=== PATIENT | female | born 1975 ===

== ENCOUNTER → 2017-10-10 14:43 | Outpatient (CLI) | payer OTHER | END | disposition home or self-care (01) | LOC: LAB 14:43 | DX: N30.00 Acute cystitis without hematuria (principal); R82.79 Other abnormal findings on microbiological examination of urine ==

== ENCOUNTER 2017-10-10 17:14 | Inpatient (IN) | payer OTHER ==
[~2017-10-10] VITALS: Ht 157.5 cm; Wt 90.7 kg
== END 2017-10-17 10:51 | disposition home or self-care (01) | DRG 660 ==
LOC: SURG 10-15 08:00 → O/R 10-15 08:40 → SURH 10-15 08:40 → CIR.AMB 10-15 17:12 → SURG 10-15 17:12 → EDSTATUS 10-15 17:12 → SURH 10-15 21:42
PROVIDERS: Urology
PROC: BT1FZZZ Fluoroscopy of Left Kidney, Ureter and Bladder (ICD-10-PCS; 2017-10-15)
PROC: 0TC18ZZ Extirpation of Matter from Left Kidney, Via Natural or Artificial Opening Endoscopic (ICD-10-PCS; principal; 2017-10-15 08:00)
DX: N20.0 Calculus of kidney (principal); N39.0 Urinary tract infection, site not specified; D64.89 Other specified anemias

== ENCOUNTER 2017-10-22 08:35 | Outpatient (CLI) | payer OTHER | END 2017-10-22 08:57 | disposition home or self-care (01) | LOC: LAB 08:35 | DX: N20.0 Calculus of kidney (principal) ==

== ENCOUNTER 2017-10-28 10:31 | Outpatient (CLI) | payer OTHER | END 2017-10-28 10:41 | disposition home or self-care (01) | LOC: LAB 10:31 | DX: N20.0 Calculus of kidney (principal) ==

== ENCOUNTER → 2017-12-12 | Outpatient (CLI) | payer OTHER | END | disposition home or self-care (01) | LOC: RAD 10:22 | DX: N20.0 Calculus of kidney (principal); N30.00 Acute cystitis without hematuria ==

== ENCOUNTER 2018-01-30 11:50 | Outpatient (CLI) | payer OTHER | END 2018-01-30 11:56 | disposition home or self-care (01) | LOC: LAB 11:50 | DX: N30.00 Acute cystitis without hematuria (principal) ==

== ENCOUNTER → 2018-02-03 11:20 | Outpatient (CLI) | payer OTHER | END | disposition home or self-care (01) | LOC: LAB 11:20 | DX: N30.00 Acute cystitis without hematuria (principal) ==

== ENCOUNTER 2018-02-16 09:09 | Inpatient (IN) | payer OTHER ==
[~2018-02-16] VITALS: Ht 160 cm; Wt 90.7 kg
== END 2018-02-20 10:45 | disposition home or self-care (01) | DRG 660 ==
LOC: O/R 02-18 05:59 → SURG 02-18 05:59 → SURH 02-18 07:00 → O/R 02-18 17:34 → SURG 02-19 01:44
PROVIDERS: Urology
PROC: 0T748ZZ Dilation of Left Kidney Pelvis, Via Natural or Artificial Opening Endoscopic (ICD-10-PCS; 2018-02-18)
PROC: BT1FZZZ Fluoroscopy of Left Kidney, Ureter and Bladder (ICD-10-PCS; 2018-02-18)
PROC: BT12ZZZ Fluoroscopy of Left Kidney (ICD-10-PCS; 2018-02-18)
PROC: 30233N1 Transfusion of Nonautologous Red Blood Cells into Peripheral Vein, Percutaneous Approach (ICD-10-PCS; 2018-02-18)
PROC: 0TC18ZZ Extirpation of Matter from Left Kidney, Via Natural or Artificial Opening Endoscopic (ICD-10-PCS; principal; 2018-02-18 07:00)
PROC: BT12YZZ Fluoroscopy of Left Kidney using Other Contrast (ICD-10-PCS; 2018-02-20)
DX: N20.0 Calculus of kidney (principal); D62 Acute posthemorrhagic anemia

== ENCOUNTER 2018-02-24 10:57 | Outpatient (CLI) | payer OTHER | END 2018-02-24 11:00 | disposition home or self-care (01) | LOC: LAB 10:57 | DX: N20.0 Calculus of kidney (principal) ==

== ENCOUNTER 2018-05-05 12:31 | Outpatient (CLI) | payer OTHER | END 2018-05-05 12:49 | disposition home or self-care (01) | LOC: LAB 12:31 | DX: N20.0 Calculus of kidney (principal); N30.00 Acute cystitis without hematuria; R82.79 Other abnormal findings on microbiological examination of urine ==

== ENCOUNTER 2019-08-12 11:05 | Outpatient (CLI) | payer OTHER | END 2019-08-12 11:14 | disposition home or self-care (01) | LOC: RAD 11:05 | DX: N20.0 Calculus of kidney (principal) ==